=== PATIENT | female | born 1985 | race African-American/Black ===

== ENCOUNTER 2017-09-29 19:17 | Emergency (ER) | payer SELFPAY ==
[2017-09-29 19:51] LABS: #Basophils 0.1 thou/uL (0.0-0.2); #Eosinphils 0.1 thou/uL (0.0-0.7); #Lymphocytes 4.5 thou/uL (1.20-3.40); #Monocytes 1.2 thou/uL (0.11-0.59); #Neutrophils 6.6 thou/uL (1.40-6.50); %Basophils 0.5 % (0.0-1.0); %Lymphocytes 36.3 % (21.0-51.0); %Monocytes 9.3 % (0.0-10.0); Hematocrit 35.8 % (36.0-47.0); Mean Platelet Volume 7.9 fL (7.4-10.4); Red Blood Cell (RBC) Count 3.95 mill/uL (4.20-5.40); White Blood Cell (WBC) Count 12.4 thou/uL (4.8-10.8)
--- NOTE | 2017-09-29 20:01 | RAD ---
CHEST ONE VIEW: History: Chest pain. Comparison: 11-22-16 FINDINGS: Cardiac silhouette is magnified by projection. Pulmonary vasculature is unremarkable. Mediastinum is midline. There is no confluent airspace consolidation or evidence of pneumothorax. IMPRESSION: No active cardiopulmonary abnormalities are demonstrated. POS: [facility]
[2017-09-29] MEDS ORDERED: Mag-Al 1200 mg/1200 mg/30 ML UDCUP ONE (20:11)
[2017-09-29] MEDS ORDERED: Lidocaine Viscous Sol 2% 15 ml UD Cup ONE (20:11)
[2017-09-29 20:12] LABS: ALT (SGPT) 14 U/L (8-55); AST (SGOT) 12 U/L (5-34); Alkaline Phosphatase 47 U/L (40-150); Anion Gap 12 mmol/L (10-20); BUN (Urea Nitrogen) 11 mg/dL (7.0-18.7); Bilirubin, Total 0.3 mg/dL (0.2-1.2); Calc. Creatinine Clearance 0 mL/min (70-130); Calcium 8.5 mg/dL (7.8-10.44); Carbon Dioxide 23 mmol/L (22-29); Chloride 107 mmol/L (98-107); Estimated GFR-MDRD 83; Globulin 2.8 g/dL (2.4-3.5); Protein, Total 6.1 g/dL (6.0-8.3)
[2017-09-29 20:15] LABS: Troponin I Less than 0.010 ng/mL (< 0.028)
== END 2017-09-29 23:21 | disposition home or self-care (01) ==
LOC: ERS 19:17
DX: R07.2 Precordial pain (principal); J45.909 Unspecified asthma, uncomplicated; F32.9 Major depressive disorder, single episode, unspecified; F17.210 Nicotine dependence, cigarettes, uncomplicated; Z71.6 Tobacco abuse counseling
CPT/HCPCS: 71010; 80053; 82553; 84484; 85025; 93005; 99406

== ENCOUNTER 2018-08-22 09:51 | Emergency (ER) | payer BC, SELFPAY | END 2018-08-22 11:21 | disposition home or self-care (01) | LOC: ERS 09:51 | DX: J01.90 Acute sinusitis, unspecified (principal); J31.0 Chronic rhinitis; Z71.6 Tobacco abuse counseling; J45.909 Unspecified asthma, uncomplicated; F32.9 Major depressive disorder, single episode, unspecified; F17.210 Nicotine dependence, cigarettes, uncomplicated | CPT/HCPCS: 87804; 99406 ==

== ENCOUNTER 2019-02-15 13:55 | Inpatient (IN) | payer BC, SELFPAY ==
[2019-02-15] MEDS ORDERED: ISOVUE-370 76%-LOCM 1 ML ONE (14:11)
--- NOTE | 2019-02-15 14:54 | CT ---
Head CT without contrast 02/15/2019: COMPARISON: 11/24/2009 HISTORY: Left arm numbness that started last night, neck pain TECHNIQUE: Axial CT imaging at 5 mm intervals from vertex through skull base without contrast FINDINGS: The imaged paranasal sinuses and mastoid air cells are well aerated. No displaced calvarial fracture. No intracranial hemorrhage midline shift mass effect or ventricular enlargement. IMPRESSION: No acute findings. Dr. Ureña made aware at 2:50 PM 02/15/2019
--- NOTE | 2019-02-15 15:05 | CT ---
Exam: CT of the cervical spine without contrast HISTORY: Neck pain COMPARISON: None TECHNIQUE: Multiple contiguous axial images were obtained in a CT of the cervical spine without contr ast. Sagittal and coronal reformats were performed. FINDINGS: The vertebral bodies and intervertebral discs demonstrate normal height and alignment witho ut fracture or subluxation. No prevertebral soft tissue swelling is seen. No degenerative changes are present. The posterior facets are well aligned. Normal alignment of the skull base with the cervical spine is seen. The lung apices and cervical soft tissues are unremarkable. IMPRESSION: No evidence of acute osseous abnormality of the cervical spine.
[2019-02-15 15:20] LABS: #Basophils 0.1 thou/uL (0.0-0.2); #Eosinphils 0.2 thou/uL (0.0-0.7); #Lymphocytes 3.9 thou/uL (1.20-3.40); #Monocytes 0.8 thou/uL (0.11-0.59); #Neutrophils 4.6 thou/uL (1.40-6.50); %Eosinophils 2.1 % (0.0-10.0); %Lymphocytes 40.8 % (21.0-51.0); %Monocytes 8.2 % (0.0-10.0); Hemoglobin 12.8 g/dL (12.0-16.0); Mean Corpuscular HGB CONC 33.2 g/dL (32.0-36.0); Mean Corpuscular Hemoglobin 29.8 pg (27.0-31.0); Mean Corpuscular Volume 89.6 fL (78.0-98.0); Mean Platelet Volume 8.5 fL (7.4-10.4); Platelet Count 263 thou/uL (130-400); RBC Distribution Width 11.5 % (11.5-14.5); Red Blood Cell (RBC) Count 4.31 mill/uL (4.20-5.40); White Blood Cell (WBC) Count 9.5 thou/uL (4.8-10.8)
[2019-02-15 15:26] LABS: PTT 28.6 SEC (22.9-36.1); Prothrombin Time 13.6 SEC (12.0-14.7)
[2019-02-15 15:33] LABS: ALT (SGPT) 16 U/L (8-55); AST (SGOT) 13 U/L (5-34); Albumin 4.1 g/dL (3.5-5.0); Alkaline Phosphatase 45 U/L (40-150); Anion Gap 11 mmol/L (10-20); BUN (Urea Nitrogen) 11 mg/dL (7.0-18.7); Bilirubin, Total 0.2 mg/dL (0.2-1.2); Calc. Creatinine Clearance 0 mL/min (70-130); Calcium 9.3 mg/dL (7.8-10.44); Carbon Dioxide 26 mmol/L (22-29); Chloride 104 mmol/L (98-107); Estimated GFR-MDRD 89; Globulin 2.9 g/dL (2.4-3.5); Glucose 75 mg/dL (70-105); Potassium 4.2 mmol/L (3.5-5.1); Sodium 137 mmol/L (136-145)
[2019-02-15] MEDS ORDERED: diphenhydrAMINE 50 MG/ML VIAL ONE (15:34)
[2019-02-15] MEDS ORDERED: Aspirin 81 mg Enteric Coated Tablet ONE (18:52)
--- NOTE | 2019-02-15 20:00 | PDOC.FM ---
- Objective Result Diagrams: 02/15/19 14:39 02/15/19 14:39
--- NOTE | 2019-02-15 20:18 | CT ---
Exam: CTA neck with contrast CTA head with contrast HISTORY: Left arm numbness that began at 2100; chest pain; possible stroke COMPARISON: None TECHNIQUE: 1. Multiple contiguous axial images were obtained and a CTA of the neck with contrast. 3-D sagittal a nd coronal MIP reformats were performed. 2. Multiple contiguous axial images were obtained and a CTA of the head with contrast. 3-D sagittal a nd coronal MIP reformats were performed. FINDINGS: CTA NECK: Aortic arch: Normal origin of the carotid arteries from the arch. No significant atherosclerotic dise ase of the subclavian arteries. Right common carotid artery: No significant atherosclerotic disease or narrowing Left common carotid artery: No significant atherosclerotic disease or narrowing Right internal carotid artery: No significant atherosclerotic disease or narrowing per NASCET criteri a Right external carotid artery: No significant atherosclerotic disease or narrowing Left internal carotid artery: No significant atherosclerotic disease or narrowing per NASCET criteria Left external carotid artery: No significant atherosclerotic disease or narrowing Right cervical vertebral artery: No significant atherosclerotic disease or narrowing Left cervical vertebral artery: No significant atherosclerotic disease or narrowing No cervical adenopathy. The lung apices are unremarkable. The osseous structures are unremarkable. CTA HEAD: Right intracranial internal carotid artery: Patent without narrowing or occlusion Right anterior cerebral artery: Patent without narrowing or occlusion Right middle cerebral artery: Patent without narrowing or occlusion Left intracranial internal carotid artery: Patent without narrowing or occlusion Left anterior cerebral artery: Patent without narrowing or occlusion Left middle cerebral artery: Patent without narrowing or occlusion No aneurysmal dilatation is seen in the anterior circulation. Right vertebral artery: Patent without narrowing or occlusion Left vertebral artery: Patent without narrowing or occlusion Basilar artery: Patent without narrowing or occlusion The posterior cerebral arteries and cerebellar arteries are patent without narrowing or occlusion. No aneurysmal dilatation is seen in the posterior circulation. IMPRESSION: 1. No significant CTA abnormality of the neck 2. No significant CTA abnormality of the head POS: [facility]
--- NOTE | 2019-02-15 22:00 | PDOC.FPRHP ---
- History of Present Illness Chief Complaint: left arm numbnes/tingling History of Present Illness: 33 yo F presents with left arm paralysis. This started yesterday evening as nausea followed by "feeling out of it" then onset of left arm numbness & tingling which progressed to paralysis. Denies slurred speech, facial droop, hx of CVA or blood clot disorder. In the ED, CT Brain and angio were negative for ICH or major occlusion & pt given ASA. Of note, she has a history of migraines in which she doesn't take meds for. She remembers migraine preceding left arm sxs. No recent trauma to arm or illnesses. Denies hx of seizures. ED Course: ASA, neg. stroke w/u - Allergies/Adverse Reactions Allergies Allergy/AdvReac Type Severity Reaction Status Date / Time Iodine and Iodide Containing Allergy Mild Hives Verified 02/15/19 15:42 Produc - History PMHx: asthma, severe depression PSHx: tubal ligation FHx: SLE, HTN Social: remote drug hx use of ecstasy, but currently denies t/e/d - Review of Systems General: denies: fever/chills, weight/appetite/sleep changes Eyes: denies: vision changes ENT: denies: nasal congestion, rhinorrhea Respiratory: denies: cough, congestion, shortness of breath Cardiovascular: denies: palpitation, orthopnea Gastrointestinal: reports: nausea. denies: vomiting, diarrhea, constipation - Vital signs BP: [121/81] HR: [86] RR: [18] Tmax: [98.9] Pox: [100]% on [RA] Wt: [] - Physical Exam Constitutional: NAD, awake, alert and oriented, well developed HEENT: normocephalic and atraumatic, PERRLA, EOMI, no scleral icterus, grossly normal vision, normal nasal mucosa, MMM Neck: supple, FROM, trachea midline Chest: no-tender to palpation, no lesions Heart: RRR, normal S1/S2, no murmurs/rubs/gallops Lungs: CTAB, no respiratory distress, good air movement Abdomen: soft, non-tender, bowel sounds present Musculoskeletal: normal structure, normal tone -Neurological: no sensation or movement in entirety of left arm, reflexes 1+ +arm drop test 4/5 strength in left lower extremity otherwise neuro exam nml Skin: no rash/lesions, good turgor, capillary refill <2 seconds Heme/Lymphatic: no unusual bruising or bleeding Psychiatric: normal mood and affect, good judgment and insight, intact recent and remote memory FMR H&P: Results - Labs Result Diagrams: 02/15/19 14:39 02/16/19 04:58 Lab results: WBC 9.5 thou/uL (4.8-10.8) 02/15/19 14:39 Hgb 12.8 g/dL (12.0-16.0) 02/15/19 14:39 Hct 38.6 % (36.0-47.0) 02/15/19 14:39 MCV 89.6 fL (78.0-98.0) 02/15/19 14:39 Plt Count 263 thou/uL (130-400) 02/15/19 14:39 Neutrophils % 48.0 % (42.0-75.0) 02/15/19 14:39 Sodium 137 mmol/L (136-145) 02/15/19 14:39 Potassium 4.2 mmol/L (3.5-5.1) 02/15/19 14:39 Chloride 104 mmol/L (98-107) 02/15/19 14:39 Carbon Dioxide 26 mmol/L (22-29) 02/15/19 14:39 BUN 11 mg/dL (7.0-18.7) 02/15/19 14:39 Creatinine 0.88 mg/dL (0.6-1.1) 02/15/19 14:39 Glucose 75 mg/dL (70-105) 02/15/19 14:39 Calcium 9.3 mg/dL (7.8-10.44) 02/15/19 14:39 Total Bilirubin 0.2 mg/dL (0.2-1.2) 02/15/19 14:39 AST 13 U/L (5-34) 02/15/19 14:39 ALT 16 U/L (8-55) 02/15/19 14:39 Alkaline Phosphatase 45 U/L (40-150) 02/15/19 14:39 Serum Total Protein 7.0 g/dL (6.0-8.3) 02/15/19 14:39 Albumin 4.1 g/dL (3.5-5.0) 02/15/19 14:39 - EKG Interpretation EKG: NSR - Radiology Interpretation Other Additional comment: CT brain negative C spine negative CT angio neg FMR H&P: A/P - Problem List (1) Paralysis of left upper extremity Current Visit: Yes Status: Acute Code(s): G83.24 - MONOPLEGIA OF UPPER LIMB AFFECTING LEFT NONDOMINANT SIDE (2) Asthma Current Visit: Yes Status: Acute Code(s): J45.909 - UNSPECIFIED ASTHMA, UNCOMPLICATED (3) Depression Current Visit: Yes Status: Acute Code(s): F32.9 - MAJOR DEPRESSIVE DISORDER , SINGLE EPISODE, UNSPECIFIED (4) History of uterine fibroid Current Visit: Yes Status: Acute Code(s): Z86.018 - PERSONAL HISTORY OF OTHER BENIGN NEOPLASM - Plan 33 yo F with L upper extremity paralysis admitted for CVA rule out L upper extremity paralysis -ddx: CVA vs. complex migraine -CT brain and CT Angio negative for ICH and occlusion -s/p ASA in ED -Patient still with deficits, outside frame of tPA -MRI brain, stroke r/o -Eating chips in room, no need for dysphagia screen -A1c & lipid panel to risk stratify -consider complex migraine since UE deficits more prominent than LE -patient w/o headache, tylenol PRN, avoid triptan therapy b/c can exacerbate cerebral vasoconsctrictive effecte, worsen clinical status if presence of underlying CVA Hx of asthma -not on home meds -duonebs PRN Hx of severe depression -not on home meds -will discuss this w/ patient Hx of uterine fibroids -pt kyliexMD aware Discussed with Dr. Fernandez diet: RD dvt ppx: lovenox code: full dispo: <2 MN Discussed w/ Dr. Fernandez FMR H&P: Upper Level - Pertinent history 33 yo AAF with PMH of uterine fibroid presenting with compliant of LUE paresthesia and weakness. Pt denies any increased activity or trauma and notes she was sitting around when symptoms began. Pt does endorse associated migraine CASTRO, which she has been noticing more often. Pt also endorsed associated nausea and overall discomfort. Her left arm then became weak and she stated she could not feel it. - Pertinent findings VSS Gen: pleasant in NAD CV: RRR, no murmurs Resp: CTAB Neuro: CN II-XII intact. LUE reveals flaccid paralysis with minimal tone and 0/ 5 strength. 2+ reflexes LUE. All other extr 5/5 strength with no evidence of hyperreflexia or clonus. - Plan Date/Time: 02/15/19 2200 I, Tavo Garcia MD PGY3, have evaluated this patient and agree with findings/ plan as outlined by international student counselor resident. Pertinent changes/additions are listed here. 1. 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 Evaluated in ER with concern for CVA with workup thus far being negative including CT brain and CTA head & neck. -Will admit pt to stroke observation and obtain brain MRI. -History, symptoms, and exam consistent with hemiplegic migraine which typically results in self resolution. Will continue to monitor closely. -Avoid triptan abortive therapy due to vasoconstrictive effects which may worsen clinical picture. -Pending further work up and clinical course, consider neurology consultation, possibly in the outpatient setting. FULL code PPx: Lovenox for VTE, no GI indicated. disposition: Admit to stroke observation for anticipated length of stay less than two midnights, pending clinical course. Addendum - Attending - Attending Attestation Date/Time: 02/16/19 0817 I personally evaluated the patient and discussed the management with Dr. New last night. I agree with the History, Examination, Assessment and Plan documented above with any addition or exceptions noted below.
[2019-02-15] MEDS ORDERED: Ondansetron PF 4 MG/2 ML Vial IVP PRN (22:16)
[2019-02-15] MEDS ORDERED: Ondansetron ODT 4 MG TAB PO PRN (22:16)
[2019-02-15 22:59] LABS: Hemoglobin A1c 4.6 % (4.0-6.0)
[2019-02-16 01:15] LABS: Amphetamine Not Detected (NotDetected); Barbiturates Screen Not Detected (NotDetected); Benzodiazepine Screen Not Detected (NotDetected); Cocaine Metabolite Screen Not Detected (NotDetected); Medtox Control Line Valid? VALID (VALID); Medtox Reader # READER 4; Methadone Not Detected (NotDetected); Methamphetamine Not Detected (NotDetected); Opiate Screen Not Detected (NotDetected); Oxycodone Screen Not Detected (NotDetected); Phencyclidine (PCP) Not Detected (NotDetected); THC/Cannabinoid Screen Not Detected (NotDetected); Tricyclic Screen Not Detected (NotDetected)
[2019-02-16 01:59] VITALS: BMI 27.4
[2019-02-16 05:39] LABS: Anion Gap 11 mmol/L (10-20); BUN (Urea Nitrogen) 8 mg/dL (7.0-18.7); Calc. Creatinine Clearance 114 mL/min (70-130); Calcium 8.9 mg/dL (7.8-10.44); Carbon Dioxide 25 mmol/L (22-29); Cardiac Risk 2.6 (Less than 4.5); Chloride 105 mmol/L (98-107); Cholesterol 110 mg/dl (< 200 Desired); Estimated GFR-MDRD Greater than 90; Glucose 93 mg/dL (70-105); HDL Cholesterol 43 mg/dL (>60 Neg Risk); LDL Cholesterol, Calculated 53 mg/dL; Potassium 3.8 mmol/L (3.5-5.1); Sodium 137 mmol/L (136-145); Triglycerides 72 mg/dL (Less than 150)
--- NOTE | 2019-02-16 06:53 | PDOC.FM ---
- Subjective Subjective: NAEO. Patient resting comfortably in bed. She states she has had improvement in her symptoms since last night. She states she is able to move her fingers on her left hand and has return of sensation in her left arm. She is also able to raise her left leg/move better than yesterday. - Objective MAR Reviewed: Yes Vital Signs & Weight: Vital Signs (12 hours) Temp Pulse Resp BP Pulse Ox 02/16/19 04:00 98.9 F 67 18 95/54 L 97 02/15/19 22:20 98.8 F 88 16 114/75 100 Weight Weight 72.575 kg I&O: 02/14/19 02/15/19 02/16/19 06:59 06:59 06:59 Intake Total 240 Balance 240 Result Diagrams: 02/15/19 14:39 02/16/19 04:58 Phys Exam - Physical Examination Constitutional: NAD HEENT: PERRLA, moist MMs, sclera anicteric Neck: full ROM Respiratory: clear to auscultation bilateral Cardiovascular: RRR, no significant murmur, no rub Gastrointestinal: soft, non-tender, no distention, positive bowel sounds Musculoskeletal: pulses present sensation intact b/l UE, 4/5 strength in LLE, 0/5 strength in LUE movement in left fingers Psychiatric: normal affect, A&O x 3 Skin: no rash, normal turgor, cap refill <2 seconds Dx/Plan (1) Asthma Code(s): J45.909 - UNSPECIFIED ASTHMA, UNCOMPLICATED Status: Acute (2) Depression Code(s): F32.9 - MAJOR DEPRESSIVE DISORDER, SINGLE EPISODE, UNSPECIFIED Status : Acute (3) Paralysis of left upper extremity Code(s): G83.24 - MONOPLEGIA OF UPPER LIMB AFFECTING LEFT NONDOMINANT SIDE Status: Acute - Plan Plan: 33 yo F with L upper extremity paralysis admitted for CVA rule out L upper extremity paralysis - CVA vs complex migraine - CT brain and CT Angio negative for ICH and occlusion - s/p ASA in ED - Patient still with deficits, outside frame of tPA - MRI brain, stroke r/o - A1c and FLP wnl - patient w/o headache, tylenol PRN, avoid triptan therapy b/c can exacerbate cerebral vasoconsctrictive effecte, worsen clinical status if presence of underlying CVA Hx of asthma - not on home meds - duonebs PRN Hx of severe depression - not on home meds - will discuss this w/ patient Hx of uterine fibroids - pt MD erich aware diet: RD dvt ppx: lovenox code: full dispo: pending MRI results, possible Dc later today Addendum - Attending - Attending Attestation Date/Time: 02/16/19 3998 I personally evaluated the patient and discussed the management with Dr. Matta I agree with the History, Examination, Assessment and Plan documented above with any addition or exceptions noted below. 33 yo with acute onset left arm hemiparesis. Patient with past history of migraines with consideration complex migraine however MRI suggest ischemic areas consider embolic CVA rec echocardiogram , screen for vasculitis with inflammatory marker and Neurology Consultation.Left arm function strength improved working with OT during rounds.
--- NOTE | 2019-02-16 10:01 | MRI ---
MRI BRAIN NONCONTRAST: Date: 02/16/19 HISTORY: 33-year-old female status post stroke. Left-sided weakness. FINDINGS: The ventricles are normal in size and configuration. There is no moderate-sized or large intraaxial signal abnormality, restricted diffusion, midline shift or any other mass effect, recent intraaxial h emorrhage, or extraaxial fluid collection. There are numerous tiny T2-hyperintense foci in the bilate ral cerebral subcortical and deep white matter (best visualized on the FLAIR sequence). IMPRESSION: 1. Multiple tiny focal T2 hyperintense lesions in the bilateral cerebral white matter. These are non specific. Possibilities include mild chronic ischemic white matter changes (greater than expected for age) and/or migraine lesions. 2. No acute infarction. 3. No other abnormality. jn[] POS: [facility]
[2019-02-16] MEDS: Aspirin 325 mg Enteric Coated Tablet PO SCH (10:11)
[2019-02-16] MEDS: Enoxaparin Sodium 40 MG/0.4 ML SYRINGE SC SCH (10:11)
[2019-02-16] MEDS ORDERED: methylPREDNISolone Sod Succ/PF 125 MG/2 ML VIAL IVP SCH ×2 (17:00)
[2019-02-16] MEDS ORDERED: methylPREDNISolone Sod Succ 1 GM in Sodium Chloride 0.9% 250 ML 250 ML IVPB SCH (18:00)
--- NOTE | 2019-02-17 06:28 | PDOC.FM ---
- Subjective Subjective: Patient started steroid IV last night, she got nauseous, but was able to tolerate once the rate was slowed. She states she is completely back to baseline. Her arm function is completely improved. - Objective MAR Reviewed: Yes Vital Signs & Weight: Vital Signs (12 hours) Temp Pulse Resp BP Pulse Ox 02/17/19 04:00 97.5 F L 99 16 101/65 99 02/17/19 00:00 97.5 F L 76 16 110/58 L 100 02/16/19 20:20 100 02/16/19 19:21 98.1 F 96 16 112/78 100 Weight Weight 72.575 kg I&O: 02/15/19 02/16/19 02/17/19 06:59 06:59 06:59 Intake Total 240 1440 Balance 240 1440 Result Diagrams: 02/15/19 14:39 02/16/19 04:58 Phys Exam - Physical Examination Constitutional: NAD HEENT: PERRLA, moist MMs, sclera anicteric Neck: full ROM Respiratory: clear to auscultation bilateral Cardiovascular: RRR, no significant murmur, no rub Gastrointestinal: soft, non-tender, no distention, positive bowel sounds Neurological: moves all 4 limbs 5/5 strength in LUE, sensation intact Psychiatric: normal affect, A&O x 3 Skin: no rash, normal turgor, cap refill <2 seconds Dx/Plan (1) Asthma Code(s): J45.909 - UNSPECIFIED ASTHMA, UNCOMPLICATED Status: Acute (2) Depression Code(s): F32.9 - MAJOR DEPRESSIVE DISORDER, SINGLE EPISODE, UNSPECIFIED Status : Acute (3) Paralysis of left upper extremity Code(s): G83.24 - MONOPLEGIA OF UPPER LIMB AFFECTING LEFT NONDOMINANT SIDE Status: Acute - Plan Plan: 33 yo F with L upper extremity paralysis admitted for CVA rule out L upper extremity paralysis - CVA vs complex migraine vs MS - CT brain and CT Angio negative for ICH and occlusion - s/p ASA in ED - Patient still with deficits, outside frame of tPA - MRI brain, stroke r/o - A1c and FLP wnl - patient w/o headache, tylenol PRN, avoid triptan therapy b/c can exacerbate cerebral vasoconsctrictive effecte, worsen clinical status if presence of underlying CVA - Neurology consulted 02/17, appreciate recs Hx of asthma - not on home meds - duonebs PRN Hx of severe depression - not on home meds - will discuss this w/ patient Hx of uterine fibroids - pt MD erich aware diet: RD dvt ppx: lovenox code: full dispo: possible DC later today, pending neuro recs Addendum - Attending - Attending Attestation Date/Time: 02/17/19 0205 I personally evaluated the patient and discussed the management with Dr. Matta I agree with the History, Examination, Assessment and Plan documented above with any addition or exceptions noted below. Patient's symptoms have completely resolved. Atypical migraine vs MS- no sign of CVA on MRI- Appreciate neuro recs this morning. Patient desires d/c today.
[2019-02-17 08:01] VITALS: TEMP 99.4
[2019-02-17] MEDS: Enoxaparin Sodium 40 MG/0.4 ML SYRINGE SC SCH (09:32)
[2019-02-17] MEDS: Aspirin 325 mg Enteric Coated Tablet PO SCH (09:32)
[2019-02-17 12:14] VITALS: BP 118/76
--- NOTE | 2019-02-17 14:21 | EKG ---
Test Reason : Blood Pressure : / mmHG Vent. Rate : 066 BPM Atrial Rate : 066 BPM P-R Int : 100 ms QRS Dur : 072 ms QT Int : 392 ms P-R-T Axes : 002 003 010 degrees QTc Int : 410 ms Sinus rhythm with short NE Moderate voltage criteria for LVH, may be normal variant Borderline ECG Confirmed by LAURA SHERMAN DO ([id number]), editor city [place] ([id number]) on 02/17/2019 2:20:56 PM Referred By: Confirmed By:LAURA SHERMAN DO
--- NOTE | 2019-02-17 22:09 | CON ---
DATE OF CONSULTATION: CHIEF COMPLAINT: Left-sided tingling and numbness. HISTORY OF PRESENT ILLNESS: The patient is a 33-year-old lady with known history of migraine headaches. She reports she had chest pain and left-sided tingling and numbness in the arm before she was brought to the ER and she also felt she could not move well and she reported all these symptoms resolved within a few hours. At this time, she is back to baseline. She is not sure whether chest pain or headache started first. PREVIOUS MEDICAL HISTORY: Generally healthy except for migraine headaches. She also has a history of asthma and depression. 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 ALLERGIES: SHE IS ALLERGIC TO IODINE DYE, WHICH CAUSES HIVES. PAST SURGICAL HISTORY: Tubal ligation. FAMILY HISTORY: Positive for migraine headache in her aunt and there is history of stroke in her family in her uncles and aunts. REVIEW OF SYSTEMS: CARDIOVASCULAR: Positive for chest pain. Negative for palpitations. PULMONARY: Negative for shortness of breath or cough. GI: Negative for diarrhea, vomiting, or nausea. GENITOURINARY: Negative for any bladder symptoms. DERMATOLOGIC: Negative for any skin rash or itching. HEMATOLOGIC: Negative for bleeding diathesis. NEUROLOGICAL: Positive for headache and tingling in the arm on the left side. LABORATORY DATA AND DIAGNOSTIC STUDIES: Her workup so far; labs; white count 9.5, hemoglobin 12.8, hematocrit 38.6, and platelets 263. PT 13.6, INR 1, and PTT 28.6. Chemistry; sodium 137, potassium 3.8, chloride 105, BUN 8, and creatinine 0.8. Triglycerides 72, cholesterol 110, LDL 53, HDL 43. Echocardiogram was negative for any PFO. EF was 55% to 60%, and her brain MRI chronic white matter changes or migraine related. CT angiogram did not show any vaso-occlusive disease. PHYSICAL EXAMINATION: VITAL SIGNS: Her blood pressure was 98/55, temperature 99.4, pulse 86, respiratory rate 16. GENERAL APPEARANCE: Well-built, well-nourished lady, who was sitting at the bed. CHEST: Clear vesicular breathing. CARDIOVASCULAR: S1 and S2 heard. No murmurs. ABDOMEN: Soft. NEUROLOGICAL: Higher intellectual functions. Normal orientation to time, place, and person. Cranial nerves; normal extraocular movements. Pupils are 2 mm, reactive to light. Normal sensation of face bilaterally. Tongue midline. No atrophy noted. Normal strength of facial muscles bilaterally. Normal elevation of palate. Normal hearing to finger rub bilaterally. Motor examination; bulk normal, tone normal, strength 5/5 in the upper and lower extremities in deltoid, biceps, wrist extension and finger extension and flexion bilaterally and sensory normal to touch bilaterally. Cerebellar, normal [id number] and [id number]. IMPRESSION: The patient is a 33-year-old lady with history of chest pain and left-sided tingling and numbness in the setting of headache, which all of the neurological symptoms have resolved. Her neurological examination is normal. MRI shows small white matter lesions, usually seen in the setting of headache. I suspect this lady might have had complicated migraine rather than a transient ischemic attack or stroke due to lack of risk factors. RECOMMENDATIONS: I suggested that she take aspirin daily for stroke prophylaxis and make an appointment to see Dr. Benitez as outpatient. We will see her as needed. I discussed her case with the primary admitting physician and she can be discharged home. Job ID: [id number]
--- NOTE | 2019-02-19 02:42 | DIS ---
DATE OF ADMISSION: 02/15/2019 DATE OF DISCHARGE: 02/17/2019 RESIDENT: Bethanie Matta MD. ADMITTING ATTENDING: Christoph Fernandez MD DISCHARGE ATTENDING: Monse Fernandez MD. CONSULTS: Neurology. PROCEDURES: None. PRIMARY DIAGNOSIS: Left arm paralysis secondary to complex migraine. SECONDARY DIAGNOSES: Depression and asthma. DISCHARGE MEDICATIONS: None. DISCONTINUED MEDICATIONS: None. HISTORY OF PRESENT ILLNESS/HOSPITAL COURSE: This is a 33-year-old female with PMH of migraines, who presented to the ED with left arm paralysis. The patient said that the prior evening to presentation she had nausea followed by feeling "out of it" and onset of left arm numbness and tingling, which progressed to paralysis. The patient denied any slurred speech, facial droop, history of CVA, or blood clot disorder. Of note, the patient has a history of migraine, for which she does not take any medication. She does remember a migraine preceding the left arm symptoms. The patient had no recent trauma to the arm. The patient denies any seizures. Endorsed feeling stressed lately due to moving into a new house and planning a wedding. In the emergency department, the patient had a CT brain and CTA which were negative for any acute process. The patient was given aspirin in the ED. The patient remained vitally stable throughout her stay. The patient's labs were within normal limits including a fasting lipid panel, CRP, and UDS. The patient had an MRI of the brain done, that showed multiple tiny focal T2 hyperintense lesions in the bilateral cerebral white matter that could be consistent with migraine lesions. At this point, Neurology was consulted. The patient was given a dose of steroids to see if it would help the left arm paralysis. The patient did have complete resolution of left arm paralysis by the morning of 02/16/2019. She worked with PT and had completely regained her strength. Neurology recommended to follow up outpatient for migraine control and suspected that the patient's left arm numbness and paralysis were likely due to complex migraine. They did recommend that she take an aspirin daily. DISPOSITION: Stable. DISCHARGE INSTRUCTIONS: 1. Location: Home. 2. Activity: Ad raquel. 3. Diet: Regular. 4. Follow up with PCP, Dr. Garcia within a week. Job ID: [id number] [facility]
== END 2019-02-17 12:29 | disposition home or self-care (01) | DRG 103 ==
LOC: ERS 13:55 → 2SE 19:25
PROVIDERS: ADMIT Family Medicine; ATTEND Family Medicine
DX: G43.809 Other migraine, not intractable, without status migrainosus (principal); G81.94 Hemiplegia, unspecified affecting left nondominant side; J45.909 Unspecified asthma, uncomplicated; F32.9 Major depressive disorder, single episode, unspecified; F17.210 Nicotine dependence, cigarettes, uncomplicated; Z91.041 Radiographic dye allergy status; Z86.018 Personal history of other benign neoplasm; Z98.51 Tubal ligation status
CPT/HCPCS: 36415; 36416; 70450; 70496; 70498; 70551; 72125; 80048; 80053; 80061; 80306; 83036; 84484; 85025; 85610; 85652; 85730; 86140; 93005; 93306; 94760; 96374; 99406; J1200; J1650; J2405; J2930; J3490; J7050; Q9966

== ENCOUNTER 2019-02-19 23:17 | Emergency (ER) | payer BC ==
[2019-02-20] MEDS ORDERED: Acetaminophen 500 MG TAB ONE (00:24)
[2019-02-20] MEDS ORDERED: diphenhydrAMINE 50 MG/ML VIAL ONE (00:24)
[2019-02-20] MEDS ORDERED: Prochlorperazine 10 MG/2 ML VIAL IVP SCH (00:45)
== END 2019-02-20 02:03 | disposition home or self-care (01) ==
LOC: ERS 23:17
DX: G43.909 Migraine, unspecified, not intractable, without status migrainosus (principal); R20.2 Paresthesia of skin; J45.909 Unspecified asthma, uncomplicated; F32.9 Major depressive disorder, single episode, unspecified; F17.210 Nicotine dependence, cigarettes, uncomplicated
CPT/HCPCS: 96361; 96374; 96375; J0780; J1200

== ENCOUNTER 2020-05-13 10:33 | Outpatient (CLI) | payer OTHER ==
--- NOTE | 2020-05-13 11:25 | ULT ---
Exam: Pelvic ultrasound HISTORY: Uterine fibroid. COMPARISON: None TECHNIQUE: Multiple grayscale and color Doppler images were obtained in a transabdominal and transvag inal pelvic ultrasound. Spectral analysis of the Doppler waveforms of the ovaries were performed. FINDINGS: CERVIX: Not well evaluated on this examination due to shadowing. UTERUS: Uterus measures 7.6 cm x 5.3 cm x 4.3 cm. There is a pedunculated hypoechoic mass seen at the uterine fundus which measures 3.3 cm x 2.2 cm x 1.9 cm this may represent a pedunculated uterine fibroid. ENDOMETRIAL STRIPE: 5 mm which is within normal limits for a normal menstruating female patient. No f luid or fluid collection is seen in the endometrial canal. No free fluid is present. RIGHT OVARY: Not visualized secondary shadowing from bowel gas. LEFT OVARY:Normal in appearance with peripheral follicles seen. Venous flow is documented in the left ovary, arterial flow is difficult to elicit. IMPRESSION: 1. Pedunculated uterine mass at the uterine fundus probably related to a pedunculated uterine fibroid measuring 3.3 cm in maximal dimension. 2. Nonvisualization right ovary. 3. Normal appearance of the left ovary.
== END 2020-05-13 10:34 | disposition home or self-care (01) ==
LOC: BICULT 10:33
PROVIDERS: ATTEND Obstetrics & Gynecology
DX: D25.9 Leiomyoma of uterus, unspecified (principal); N85.8 Other specified noninflammatory disorders of uterus
CPT/HCPCS: 76856

== ENCOUNTER 2020-11-03 06:10 | Day surgery (SDC) | payer OTHER ==
[2020-10-28 12:10] VITALS: BMI 30.6
[2020-10-29 09:25] LABS: Hemoglobin 12.1 g/dL (12.0-16.0); Mean Corpuscular HGB CONC 32.4 G/DL (32.0-36.0); Mean Corpuscular Hemoglobin 28.3 PG (27.0-33.0); Mean Corpuscular Volume 87.4 fl (80.0-100.0); Mean Platelet Volume 11.2 fl (7.4-10.4); Platelet Count 273 10x3/uL (130-400); RBC Distribution Width 12.9 % (11.5-14.5); Red Blood Cell (RBC) Count 4.27 10x6/uL (3.90-5.20); White Blood Cell (WBC) Count 8.3 10x3/uL (4.5-11.0)
[2020-10-29 09:42] LABS: BHCG - Serum Negative (NEGATIVE); Pregs Control Background? CLEAR/WHITE (CLR/WHITE); Pregs Control Bar Appear? YES (CONTROL BAR)
[2020-10-29 18:33] LABS: SARS-CoV-2 MS2 Positive; SARS-CoV-2 N Gene Negative; SARS-CoV-2 S Gene Negative; SARS-CoV-2 by NAA Not Detected (NotDetected); SARS-CoV-2 orf1ab Negative
--- NOTE | 2020-11-02 14:06 | HP ---
DATE OF SURGERY: 11/03. HISTORY OF PRESENT ILLNESS: Ms. Sevilla is a 35-year-old female, G4, P3, A1, with tubal ligation and three spontaneous vaginal deliveries, who has history of uterine fibroids with resulting menorrhagia. She also has an interesting course, in that she develops cyclic chest pain during her menstrual cycles. The pain sometimes is significant where she has presented to the emergency room for evaluation. She has had an extensive workup for the chest pain including both cardiac and pulmonary, which have all been negative for cardiac or pulmonary etiology. She had a recent CT scan of the chest, which was negative. She is unable to use oral contraceptives for the menorrhagia due to her history of hemiplegic migraines. She is noted to have had a tubal ligation and is done with fertility. She was seen in my office on September 10. At that time, a transvaginal ultrasound was performed, showing her uterus to have evidence of a left posterior fibroid 4.3 x 1.7 x 2.3 cm, a right fundal pedunculated fibroid measuring 5.5 x 4 x 6 cm, and a right fundal intramural fibroid measuring 2.3 x 1.5 x 2.2 cm. Her endometrial lining was 7.5 mm and both ovaries and adnexal structures appeared normal. PAST MEDICAL HISTORY: As noted, migraines, and mixed anxiety and depressive disorder. PAST SURGICAL HISTORY: Being the tubal ligation. ALLERGIES: SHE HAS ALLERGIES TO MEDICATIONS INCLUDING IODINE AND REGLAN. CURRENT MEDICATIONS: 1. Buspirone 10 mg tablet b.i.d. 2. Fluoxetine 10 mg tablet daily. 3. Lamictal 100 mg tablet daily. FAMILY HISTORY: Mother has asthma. SOCIAL HISTORY: Smoking history, she is a 1/4 pack per day smoker. No use of illicit drugs reported. OB HISTORY: As noted, G4, P3, A1, with three vaginal deliveries. PHYSICAL EXAMINATION: VITAL SIGNS: Height 5 feet 5 inches, weight 182, BMI 30.3, blood pressure 116/70, pulse 69, respiratory rate 18, and O2 saturation on room air 99%. HEENT: Within normal limits. CHEST: Clear to auscultation. HEART: Regular rate and rhythm, S1 and S2. HEART: Sounds with no murmurs, rubs, or gallops. ABDOMEN: Soft, nontender, and nondistended. No palpable masses. PELVIC: Vagina and vulva had no lesions. Cervix had no lesions. She is up to date with her Pap smear, being normal within the past 3 years. Uterus is approximately 14-week to 16-week size. It is mobile. ASSESSMENT AND PLAN: This is a 35-year-old female, with tubal ligation with menorrhagia and uterine fibroids. She also has menstrual-related atypical chest pain, possibly indicating endometriosis effect. Plan is to proceed with robotic total laparoscopic hysterectomy and bilateral salpingectomy. Possible need for removal of the uterine specimen via the ExCITE procedure. Risks and benefits of procedure have been discussed in detail, she is set for surgery on 11/03. Job ID: [id number]
[2020-11-03] MEDS ORDERED: Lidocaine 1% w/Epinephrine 1:100K 20 ML VIAL ONE (06:43)
[2020-11-03] MEDS ORDERED: Bupivacaine 0.25% HCL 30 ML VIAL ONE (06:43)
[2020-11-03] MEDS ORDERED: Famotidine/PF 20 mg/2ml Vial ONE (06:45)
[2020-11-03] MEDS ORDERED: CeleCOXIB 100 MG CAP ONE (06:45)
[2020-11-03] MEDS ORDERED: Gabapentin 300 MG CAP ONE (06:45)
[2020-11-03] MEDS ORDERED: SUGAMMADEX SODIUM 200 MG/2 ML VIAL ONE (06:51)
[2020-11-03] MEDS ORDERED: Fentanyl 250 MCG/5 ML VIAL ONE (06:51)
[2020-11-03] MEDS ORDERED: Midazolam HCl 2 mg/2 ml Vial ONE (07:20)
[2020-11-03] MEDS ORDERED: Fentanyl 100 MCG/2 ML VIAL ONE (09:54)
[2020-11-03] MEDS ORDERED: Dexamethasone 20 MG/5 ML VIAL ONE (10:27)
[2020-11-03] MEDS ORDERED: Lidocaine 1% PF 5 ML VIAL ONE (10:27)
[2020-11-03] MEDS ORDERED: Glycopyrrolate 0.2 MG/ML 5 ML SYRINGE ONE (10:27)
[2020-11-03] MEDS ORDERED: PROPOFOL 200 MG/20 ML VIAL ONE (10:27)
[2020-11-03] MEDS ORDERED: Ondansetron PF 4 MG/2 ML Vial ONE (10:27)
[2020-11-03] MEDS ORDERED: Rocuronium Bromide 10 MG/ML (10ML VIAL) ONE (10:27)
--- NOTE | 2020-11-03 10:51 | OP ---
DATE OF PROCEDURE: 11/03/2020 PREOPERATIVE DIAGNOSES: 1. A 35-year-old female, G4, P2, A2 with prior bilateral tubal ligation done. 2. Menorrhagia secondary to uterine fibroids. 3. Severe dysmenorrhea. 4. An atypical chest pain associated with dysmenorrhea. POSTOPERATIVE DIAGNOSES: 1. A 35-year-old female, G4, P2, A2 with prior bilateral tubal ligation done. 2. Menorrhagia secondary to uterine fibroids. 3. Severe dysmenorrhea. 4. An atypical chest pain associated with dysmenorrhea. PROCEDURES PERFORMED: Robotic total laparoscopic hysterectomy with bilateral salpingectomy. PIGSKIN TRIMMER SURGEON: Kelsie Forde PA-C ANESTHESIA: General endotracheal. ESTIMATED BLOOD LOSS: 25 mL. COMPLICATIONS: None. COUNTS: Correct x2. ANTIBIOTICS: 2 g Ancef in ERAS protocol. FINDINGS: 1. Normal bilateral ovaries with tubes showing evidence of prior tubal surgery. Uterus had 2 intramural, approximately 2 to 3 cm, anterior and posterior fibroids and then one 5-cm pedunculated fibroid at the posterior fundus. 2. Clear urine present in Farley catheter postprocedure and bladder was watertight to fluid distention over 300 mL. 3. Bilateral ureteral peristalsis visualized postprocedure and course of ureters were inferior to the operative sites. DISPOSITION: Recovery room, stable. DESCRIPTION OF PROCEDURE: The patient had previously received informed consent in regard to surgery. She was taken back to the operating room where she received a general endotracheal anesthetic agent without complications. She was placed in the dorsal lithotomy position with Ant stirrups and prepped and draped in the usual sterile fashion. A side-arm speculum was placed after Farley catheter had been placed and the anterior lip of cervix was grasped with single-tooth tenaculum. The uterus sounded to 9 cm and a size 8-cm CANDACE uterine manipulator with 4.0 cm cervical cup was placed. Tenaculum and speculum were removed. Attention was then turned to the abdomen where prospective trocar sites were infiltrated with 0.5% Marcaine with epinephrine. A 12-mm supraumbilical incision was made and the Veress needle entered into the peritoneal cavity. The patient's pressure was noted to be less than 5 mm and the abdomen was insufflated with patient pressure of 15, which approximately 4 L of carbon dioxide gas. The Veress needle was removed. A size 12-mm trocar was then placed and then the robotic laparoscope was introduced through the trocar sleeve, confirming proper entry. Additional bilateral lower quadrant 8-mm trocars were placed under laparoscopic guidance along with an 11-mm right upper quadrant seed laboratory assistant port. The patient was placed in deep Trendelenburg and the robot was docked. I broke scrub and then proceeded to carry out the surgery from the operative console while my assistants remained at the bedside. The uterus was elevated from the pelvis by my seed laboratory assistant and the left fallopian tube that remained was grasped by my seed laboratory assistant. I coagulated with bipolar fenestrated cautery the mesosalpinx of the remaining tube and incised with monopolar scissors and then we removed the tubal remnant through the right upper quadrant port. I then proceeded to coagulate the left uterine ovarian ligament with bipolar fenestrated cautery, transected this and carried down coagulation and excision to the left round ligament with bipolar fenestrated cautery and monopolar scissors. The anterior leaf of the broad ligament was then entered. The vesicouterine peritoneum was dissected in a layering technique, dissecting the bladder atraumatically past the cervical vaginal margin. The left uterine vessels were skeletonized anteriorly and posteriorly, dissecting the peritoneal sheath down them and then they were coagulated the internal cervical os region with bipolar fenestrated cautery. This was carried out in likewise fashion with the right fallopian tube being grasped by my seed laboratory assistant. The tube being removed after had been coagulated the mesosalpinx through the right upper quadrant port. The right uterine ovarian ligament was coagulated and transected and serial coagulation remaining at the broad ligament hugging close to uterus was carried out to the round ligament was reached. It again was coagulated and transected. The anterior leaf of the broad ligament was entered again in a layering technique, further completing the dissection of the bladder away from the lower uterine segment past the cervical vaginal margin atraumatically. Again, the vessels at the internal cervical os had been skeletonized and coagulated. I then backfilled the bladder, ascertaining the correct position of the bladder prior to the anterior colpotomy. The prospective anterior colpotomy incision site was freed from the bladder and visually noted. The anterior colpotomy was then started from 12 to 3 and 12 to 9 o'clock, taking care of coagulating the uterine accessory vessels that remained with bipolar fenestrated cautery. The posterior colpotomy was then completed from 6 to 3 and 6 to 9 o'clock. The specimen was then pulled into the vaginal vault by my surgical nurse. My monopolar scissor was switched out with a Evan needle driver helper to help in removal of the uterus into the vaginal vault. Once this was completed, the vaginal cuff was coagulated of any areas of bleeding with bipolar fenestrated cautery. Once this was secured, my seed laboratory assistant brought in a Stratafix suture. I then proceeded to close the vaginal cuff in a full-thickness closure, starting at the right angle back to the left angle of the vaginal cuff and then back towards the right angle. The excess suture and needle were then cut and removed through the right upper quadrant port. We then suction irrigated the pelvis. All pedicle sites were inspected and noted to be hemostatic. We dropped the pressure down to less than 10 mmHg. Again, there was no evidence of any venous oozing. The courses of the ureter again were visualized and noted to be inferior and not in close proximity to the operative sites. The bladder was draining clear urine in the Farley catheter. The patient was then undocked from the robot. Trocar sleeves were removed after excess carbon dioxide gas was released. A deep stitch of 0 Vicryl was placed in the fascia in the supraumbilical region and the remainder of the trocar sites were closed with 4-0 Monocryl and Dermabond. The vaginal cuff was checked with the sponge stick and noted to be hemostatic. The patient was awakened from anesthesia and transferred to Recovery in stable condition. Plan is for probable discharge today from Day Stay if she continues to do well and stable. Job ID: [id number]
[2020-11-03] MEDS ORDERED: HYDROcodone/Acetaminophen 5/325 mg Tablet ONE (12:39)
[2020-11-03] MEDS ORDERED: traMADol HCl 50 MG TAB ONE (12:41)
== END 2020-11-03 13:40 | disposition home or self-care (01) ==
LOC: SDC 06:10
PROVIDERS: ATTEND Obstetrics & Gynecology
PROC: 0UT94ZZ Resection of Uterus, Percutaneous Endoscopic Approach (ICD-10-PCS; principal; 2020-11-03)
PROC: 0UT74ZZ Resection of Bilateral Fallopian Tubes, Percutaneous Endoscopic Approach (ICD-10-PCS; principal; 2020-11-03)
DX: D25.2 Subserosal leiomyoma of uterus (principal); D25.1 Intramural leiomyoma of uterus; N87.9 Dysplasia of cervix uteri, unspecified; N72 Inflammatory disease of cervix uteri; N80.0 Endometriosis of uterus; N94.6 Dysmenorrhea, unspecified; N80.2 Endometriosis of fallopian tube; G43.409 Hemiplegic migraine, not intractable, without status migrainosus; F41.8 Other specified anxiety disorders; F17.210 Nicotine dependence, cigarettes, uncomplicated; Z79.899 Other long term (current) drug therapy; Z91.018 Allergy to other foods; Z91.041 Radiographic dye allergy status; Z20.828 Contact with and (suspected) exposure to other viral communicable diseases
CPT/HCPCS: 84703; 85027; 86850; 86900; 86901; 87635; 88307; J0690; J1100; J2250; J2405; J2704; J3010; J7620; S0020; S0028; U0003

== ENCOUNTER 2020-11-04 20:23 | Emergency (ER) | payer OTHER ==
[~2020-11-04 20:23] MED LIST: Iopamidol-370 76% 500 ML 1 ML ONE
[2020-11-04] MEDS ORDERED: Aspirin 325 MG TAB ONE (20:58)
[2020-11-04] MEDS ORDERED: Morphine 4 MG/ML VIAL ONE (21:05)
[2020-11-04] MEDS ORDERED: diphenhydrAMINE 50 MG/ML VIAL ONE (21:06)
[2020-11-04] MEDS ORDERED: methylPREDNISolone Sod Succ/PF 125 MG/2 ML VIAL ONE (21:06)
[2020-11-04] MEDS ORDERED: Famotidine/PF 20 mg/2ml Vial ONE (21:06)
[2020-11-04] MEDS ORDERED: Ondansetron PF 4 MG/2 ML Vial ONE (21:06)
--- NOTE | 2020-11-04 21:23 | RAD ---
PORTABLE CHEST: 11/04/20 PROVIDED CLINICAL HISTORY: Chest pain, hysterectomy yesterday. FINDINGS: Comparison 09/29/17. Cardiac silhouette appears prominent, likely on the basis of portable technique. There is trace pneum operitoneum beneath the right hemidiaphragm, presumably postoperative. The lungs are hypoinflated but grossly clear. There is no pleural fluid or pneumothorax apparent. IMPRESSION: 1. No evidence for an acute cardiopulmonary process. 2. Trace pneumoperitoneum, presumably related to recent surgery. POS: LIGIA
[2020-11-04 21:25] LABS: #Basophils 0.1 thou/uL (0.0-0.2); #Eosinphils 0.1 thou/uL (0.0-0.7); #Lymphocytes 3.8 thou/uL (1.20-3.40); #Monocytes 1.1 thou/uL (0.11-0.59); #Neutrophils 7.3 thou/uL (1.40-6.50); %Basophils 0.5 % (0.0-1.0); %Eosinophils 0.4 % (0.0-10.0); %Lymphocytes 30.7 % (21.0-51.0); %Monocytes 8.8 % (0.0-10.0); %Neutrophils 59.6 % (42.0-75.0); Hemoglobin 11.1 g/dL (12.0-16.0); Mean Corpuscular HGB CONC 33.2 g/dL (32.0-36.0); Mean Corpuscular Hemoglobin 29.7 pg (27.0-31.0); Mean Corpuscular Volume 89.5 fL (78.0-98.0); Mean Platelet Volume 8.5 fL (7.4-10.4); Platelet Count 224 thou/uL (130-400); RBC Distribution Width 11.9 % (11.5-14.5); Red Blood Cell (RBC) Count 3.72 mill/uL (4.20-5.40); White Blood Cell (WBC) Count 12.2 thou/uL (4.8-10.8)
[2020-11-04 21:47] LABS: ALT (SGPT) 13 U/L (8-55); AST (SGOT) 14 U/L (5-34); Albumin 3.6 g/dL (3.5-5.0); Alkaline Phosphatase 46 U/L (40-110); Anion Gap 13 mmol/L (10-20); BUN (Urea Nitrogen) 9 mg/dL (7.0-18.7); Bilirubin, Total 0.5 mg/dL (0.2-1.2); Calc. Creatinine Clearance 0 mL/min (70-130); Carbon Dioxide 26 mmol/L (22-29); Chloride 103 mmol/L (98-107); Globulin 3.4 g/dL (2.4-3.5); Glucose 91 mg/dL (70-105); Lipase 13 U/L (8-78); Potassium 3.4 mmol/L (3.5-5.1); Sodium 139 mmol/L (136-145)
--- NOTE | 2020-11-05 07:58 | CT ---
CT PULMONARY ANGIOGRAM WITH IV CONTRAST AND 3D MIP RECONSTRUCTIONS: DATE: 11/04/2020. PROVIDED CLINICAL HISTORY: Chest pain, history of recent hysterectomy. FINDINGS: No evidence for central or segmental pulmonary embolus. The lungs are free of significant opacity. Bibasilar subsegmental atelectatic change and trace bilateral pleural fluid. Partially visualized pn eumoperitoneum, postoperative. The osseous structures demonstrate no acute abnormality. IMPRESSION: 1. No evidence for central or segmental pulmonary embolus. 2. Bibasilar subsegmental atelectasis and trace bilateral pleural fluid. POS: LIGIA
--- NOTE | 2020-11-05 08:03 | CT ---
CT OF THE ABDOMEN AND PELVIS WITH IV CONTRAST: DATE: 11/04/2020. PROVIDED CLINICAL HISTORY: Abdominal pain, recent hysterectomy. FINDINGS: The liver, spleen, pancreas, kidneys, and adrenal glands appear unremarkable. There is pneumoperitoneum as well as gas seen within the anterior abdominal wall compatible with the provided clinical history of recent hysterectomy. There is no bowel dilatation, intraperitoneal fat stranding, or free intraperitoneal fluid. No evidence for significant hematoma in the pelvis. There are foci of gas seen within the urinary bladder. The osseous structures demonstrate no concerning lytic or blastic lesions. IMPRESSION: 1. Gas within the urinary bladder, correlate for recent instrumentation. 2. Pneumoperitoneum and abdominal wall gas compatible with recent surgical history. POS: LIGIA
--- NOTE | 2020-11-08 11:19 | EKG ---
Test Reason : Blood Pressure : / mmHG Vent. Rate : 094 BPM Atrial Rate : 094 BPM P-R Int : 134 ms QRS Dur : 072 ms QT Int : 352 ms P-R-T Axes : 004 015 013 degrees QTc Int : 440 ms Normal sinus rhythm Minimal voltage criteria for LVH, may be normal variant Borderline ECG Confirmed by ETTA BRIONES, YESY Reynolds ([id number]), editor continuity and script SHIELA KAISER ([id number]) on 11/08/2020 11:18:53 AM Referred By: Confirmed By:YESY QUILES MD
== END 2020-11-05 01:00 | disposition home or self-care (01) ==
LOC: ERS 20:23
DX: G89.18 Other acute postprocedural pain (principal); R07.2 Precordial pain; G43.909 Migraine, unspecified, not intractable, without status migrainosus; F17.210 Nicotine dependence, cigarettes, uncomplicated
CPT/HCPCS: 71045; 71275; 74177; 80053; 83690; 83880; 84484; 85025; 93005; 94760; 96374; 96375; J1200; J2270; J2405; J2930; Q9967; S0028

== ENCOUNTER 2022-03-25 07:33 | Outpatient (CLI) | payer BC, OTHER | END 2022-03-25 07:34 | disposition home or self-care (01) | LOC: CT 07:33 | PROVIDERS: ATTEND Obstetrics & Gynecology | DX: N80.9 Endometriosis, unspecified (principal) | CPT/HCPCS: 71270 ==